=== PATIENT | female | born 1995 | race Two or more races ===

== ENCOUNTER → 2019-01-09 | Outpatient (CLI) | payer OTHER ==
[2019-01-09 07:49] LABS: Basophils # (auto) 0 uL; Basophils % (auto) 0.3 % (0.0-2.0); Eosinophils # (auto) 0.1 uL; Eosinophils % (auto) 1.2 % (0.0-7.0); Hematocrit 46.2 % (36.0-46.0); Hemoglobin 14.9 g/dL (12.2-16.2); Lymphocytes # (auto) 1.4 uL; Lymphocytes % (auto) 18.4 % (10.0-50.0); Mean Corpuscular Hemoglobin 29.7 pg (28.0-32.0); Mean Corpuscular Hgb Conc. 32.2 g/dL (32.0-36.0); Mean Corpuscular Volume 92.2 fL (80.0-100.0); Monocytes # (auto) 0.5 uL; Monocytes % (auto) 7.1 % (0.0-12.0); Neutrophils # (auto) 5.6 uL; Nucleated Red Blood Cells % 0.1 %; Platelet Count (auto) 272 10^3/uL (140-450); Red Blood Cells 5.01 10^6/uL (4.0-5.20); Red Cell Distribution Width 14.2 % (11.8-14.3); White Blood Cell 7.6 10^3/uL (4.4-10.8)
[2019-01-09 07:54] LABS: Urine Bacteria NONE SEEN /hpf (None Seen); Urine Blood 1+ /uL (Negative); Urine Specific Gravity 1.005 (1.001-1.035); Urine WBC 1 /hpf (0 - 5)
[2019-01-09 08:05] LABS: Albumin 3.8 g/dL (3.4-5.0); Calcium 9.3 mg/dL (8.5-10.1); Potassium 3.7 mmol/L (3.5-5.1)
[2019-01-09 08:09] LABS: BUN/Creatinine Ratio 15.3; Bilirubin, Total 0.6 mg/dL (0.2-1.0)
[2019-01-09 08:50] LABS: Free T4 (Free Thyroxine) 0.97 ng/dL (0.89-1.76)
== END | disposition home or self-care (01) ==
LOC: LAB 07:13
PROVIDERS: ATTEND Internal Medicine
DX: Z00.01 Encounter for general adult medical examination with abnormal findings (principal); R53.83 Other fatigue; R20.0 Anesthesia of skin
CPT/HCPCS: 36415; 80053; 80061; 81001; 82607; 84439; 84443; 85025; 85652; 86706

== ENCOUNTER 2019-01-17 17:40 | Emergency (ER) | payer OTHER ==
[~2019-01-17] VITALS: Ht 157.5 cm; Wt 93.4 kg
[2019-01-17 17:52] VITALS: BP 126/72
[2019-01-17 20:15] LABS: Basophils # (auto) 0.1 uL; Basophils % (auto) 1.5 % (0.0-2.0); Eosinophils # (auto) 0.1 uL; Eosinophils % (auto) 1.3 % (0.0-7.0); Hematocrit 43.3 % (36.0-46.0); Lymphocytes # (auto) 1.5 uL; Lymphocytes % (auto) 19.1 % (10.0-50.0); Mean Corpuscular Hemoglobin 29.7 pg (28.0-32.0); Mean Corpuscular Hgb Conc. 32.3 g/dL (32.0-36.0); Mean Corpuscular Volume 91.9 fL (80.0-100.0); Monocytes # (auto) 0.4 uL; Monocytes % (auto) 5.2 % (0.0-12.0); Neutrophils # (auto) 5.9 uL; Neutrophils % (auto) 72.9 % (37.0-80.0); Nucleated Red Blood Cells % 0.1 %; Platelet Count (auto) 276 10^3/uL (140-450); Red Blood Cells 4.72 10^6/uL (4.0-5.20); Red Cell Distribution Width 13.6 % (11.8-14.3); White Blood Cell 8.1 10^3/uL (4.4-10.8)
[2019-01-17 20:20] LABS: Albumin 3.6 g/dL (3.4-5.0); Anion Gap 6 (5-15); Blood Urea Nitrogen 9 mg/dL (7-18); Calcium 8.7 mg/dL (8.5-10.1); Carbon Dioxide 26 mmol/L (21-32); Chloride 108 mmol/L (98-107); Glucose 98 mg/dL (74-106); Potassium 3.9 mmol/L (3.5-5.1); Sodium 140 mmol/L (136-145)
[2019-01-17 20:24] LABS: Alanine Aminotransferase 19 U/L (13-56); Alkaline Phosphatase 85 U/L (45-117); Aspartate Aminotransferase 12 U/L (15-37); BUN/Creatinine Ratio 11.7; Bilirubin, Total 0.5 mg/dL (0.2-1.0); GFR African American 119 mL/min; GFR Non-African American 99 mL/min; Total Protein 7.6 g/dL (6.4-8.2)
== END 2019-01-17 21:58 | disposition home or self-care (01) ==
LOC: ER 17:40
DX: R60.9 Edema, unspecified (principal)
CPT/HCPCS: 36415; 80053; 83036; 83880; 84484; 85025; 93971

== ENCOUNTER 2019-05-03 15:24 | Emergency (ER) | payer OTHER ==
[~2019-05-03] VITALS: Ht 157.5 cm; Wt 91.7 kg
[2019-05-03] MEDS ORDERED: ASPirin 81 mg TAB PO ONE (16:00)
[2019-05-03 16:14] LABS: Albumin 3.6 g/dL (3.4-5.0); Anion Gap 7 (5-15); Blood Urea Nitrogen 11 mg/dL (7-18); Calcium 8.6 mg/dL (8.5-10.1); Carbon Dioxide 23 mmol/L (21-32); Chloride 108 mmol/L (98-107); Glucose 100 mg/dL (74-106); Magnesium 2.5 mg/dL (1.6-2.6); Potassium 3.8 mmol/L (3.5-5.1); Sodium 138 mmol/L (136-145)
[2019-05-03 16:20] LABS: Alanine Aminotransferase 19 U/L (13-56); Alkaline Phosphatase 95 U/L (45-117); Aspartate Aminotransferase 19 U/L (15-37); BUN/Creatinine Ratio 13.9; Bilirubin, Total 0.4 mg/dL (0.2-1.0); GFR African American 116 mL/min; GFR Non-African American 96 mL/min; Total Protein 7.7 g/dL (6.4-8.2)
[2019-05-03 16:31] LABS: Basophils # (auto) 0 uL; Basophils % (auto) 0.2 % (0.0-2.0); Eosinophils # (auto) 0.1 uL; Eosinophils % (auto) 1.4 % (0.0-7.0); Hematocrit 41.3 % (36.0-46.0); Hemoglobin 13.7 g/dL (12.2-16.2); Lymphocytes # (auto) 1.9 uL; Lymphocytes % (auto) 18.7 % (10.0-50.0); Mean Corpuscular Hgb Conc. 33.1 g/dL (32.0-36.0); Mean Corpuscular Volume 90.5 fL (80.0-100.0); Monocytes # (auto) 0.7 uL; Monocytes % (auto) 6.9 % (0.0-12.0); Neutrophils # (auto) 7.3 uL; Neutrophils % (auto) 72.8 % (37.0-80.0); Platelet Count (auto) 277 10^3/uL (140-450); Red Blood Cells 4.56 10^6/uL (4.0-5.20); Red Cell Distribution Width 13.9 % (11.8-14.3); White Blood Cell 10.1 10^3/uL (4.4-10.8)
[2019-05-03 20:05] VITALS: BP 122/66
== END 2019-05-03 20:16 | disposition home or self-care (01) ==
LOC: ER 15:24
DX: R07.89 Other chest pain (principal); M54.2 Cervicalgia
CPT/HCPCS: 36415; 71046; 80053; 83735; 84484; 85025; 85379; 93005

== ENCOUNTER 2019-05-04 16:17 | Emergency (ER) | payer OTHER ==
[~2019-05-04] VITALS: Ht 157.5 cm; Wt 91.6 kg
[2019-05-04 18:04] VITALS: BP 111/72
== END 2019-05-04 18:06 | disposition home or self-care (01) ==
LOC: ER 16:20
DX: F41.9 Anxiety disorder, unspecified (principal)
CPT/HCPCS: 70450